=== PATIENT | female | born 1975 | race Caucasian/White ===

== ENCOUNTER 2018-12-26 01:07 | Emergency (ER) | payer BC, OTHER ==
[~2018-12-26] VITALS: Ht 180.3 cm; Wt 95.3 kg
[2018-12-26 01:21] VITALS: BP 124/83
[2018-12-26] MEDS ORDERED: BACITRACIN TOP OINT 1 UD PKG TOP ONE (02:30)
[2018-12-26] MEDS ORDERED: LIDOCAINE 1% HCL (LOCAL ANESTH.) INJ 20ML MDV IJ ONE (02:30)
[2018-12-26] MEDS ORDERED: ACETAMINOPHEN/CODEINE#3 (300/30mg) TAB PO ONE (03:30)
== END 2018-12-26 03:35 | disposition home or self-care (01) ==
LOC: ER 01:11 → EEVIPCON 01:11 → ER 03:35
DX: S91.215A Laceration without foreign body of left lesser toe(s) with damage to nail, initial encounter (principal); W22.8XXA Striking against or struck by other objects, initial encounter; Y93.89 Activity, other specified; Y92.89 Other specified places as the place of occurrence of the external cause; Y99.8 Other external cause status
CPT/HCPCS: 73620; 99283; J2001

== ENCOUNTER 2018-12-27 20:28 | Emergency (ER) | payer BC ==
[~2018-12-27] VITALS: Ht 180.3 cm; Wt 95.3 kg
[2018-12-27] MEDS ORDERED: BACITRACIN TOP OINT 1 UD PKG TOP ONE (22:15)
[2018-12-27 22:36] VITALS: BP 125/78
== END 2018-12-27 22:36 | disposition home or self-care (01) ==
LOC: ER 20:30
DX: S01.81XA Laceration without foreign body of other part of head, initial encounter (principal); W22.8XXA Striking against or struck by other objects, initial encounter; Y93.89 Activity, other specified; Y99.8 Other external cause status; Y92.89 Other specified places as the place of occurrence of the external cause
CPT/HCPCS: 12011

== ENCOUNTER → 2019-08-20 | Outpatient (CLI) | payer OTHER | END | disposition home or self-care (01) | LOC: LAB 08:13 | PROVIDERS: ATTEND Nurse Practitioner Family | DX: Z03.818 Encounter for observation for suspected exposure to other biological agents ruled out (principal) | CPT/HCPCS: C9803; U0003 ==